=== PATIENT | female | born 1960 | race Caucasian/White ===

== ENCOUNTER 2017-03-20 19:49 | Emergency (ER) | payer MEDICARE ==
--- OUTSIDE RECORDS SUMMARY | 2017-03-20 20:25 | XMS REPORT | Continuity of Care Document ---
:1960 Author Organization [facility] [place] [address] Care Team Providers Name Role Phone Aneesh Damon Primary Care Provider [phone] Source Comments This disclosure is being made pursuant to the [employer] program and maynot contain all information available regarding this patient.[facility] Active Allergies and Adverse Reactions Allergen Noted Date Severity Reactions Comments Demerol 01/14/2013 High Swelling SWELLING IN THROAT AND FACE Environmental 01/14/2013 Other (See Comments) SEASONAL Lisinopril 01/19/2016 Other (See Comments) Current Medications Be aware that medications may not be up to date as of this document. Alwaysverify current medications with the patient. Prescription Sig. Disp. Refills Start Date End Date Status furosemide (LASIX) 20 MG Take by mouth Active tablet 2 (two) times daily. 140Mg in AM 100mg in PM potassium chloride Take 40 mEq by Active (K-TAB, KLOR-CON) 10 MEQ mouth 2 (two) tablet times daily. Nasal Wash SOLN by Nasal route Active daily. aspirin 81 MG EC tablet Take 81 mg by Active mouth daily. HYDROcodone-acetaminophen Take 1-2 30 tablet 0 02/07/2013 Active (NORCO) 5-325 MG per tablets by tablet mouth every 4 (four) hours as needed. ibuprofen (ADVIL,MOTRIN) Take 10 mLs by 237 mL 0 02/07/2013 Active 100 MG/5ML suspension mouth every 6 (six) hours as needed. magnesium hydroxide (MILK Take 30 mLs by 360 mL 0 02/07/2013 Active OF MAGNESIA) 400 MG/5ML mouth 2 (two) suspension times daily as needed for Constipation. metoprolol succinate Take 3 tablets 180 tablet 2 02/07/2013 Active (TOPROL-XL) 25 MG 24 hr by mouth 2 tablet (two) times daily. spironolactone Take 25 mg by 05/27/2013 Active (ALDACTONE) 25 MG tablet mouth daily. citalopram (CELEXA) 20 MG Take 20 mg by Active tablet mouth daily. hydrochlorothiazide Take 25 mg by Active (HYDRODIURIL) 25 MG mouth daily. tablet losartan (COZAAR) 50 MG Take 50 mg by Active tablet mouth 2 (two) times daily. warfarin (COUMADIN) 5 MG Take 10mg 150 tablet 1 12/24/2015 Active tablet (2tabs) Sun & Wed, 7.5mg (1 1/2 tabs) all others or as directed by [facility] levothyroxine (SYNTHROID, Take 50 mcg by Active LEVOTHROID) 50 MCG tablet mouth every morning. atorvastatin (LIPITOR) 40 Take 40 mg by Active MG tablet mouth daily. Active Problems Problem Noted Date Hyperlipidemia 01/19/2016 Morbid obesity (HCC) 01/19/2016 Automatic implantable cardiac defibrillator in situ 01/19/2016 Depression 01/19/2016 PAF (paroxysmal atrial fibrillation) ([facility]) 01/19/2016 Right knee pain 01/19/2016 Chronic systolic heart failure ([facility]) 01/19/2016 Ventricular tachycardia ([facility]) 01/19/2016 H/O mitral valve replacement 01/19/2016 LBBB (left bundle branch block) 01/19/2016 Primary cardiomyopathy ([facility]) 01/19/2016 COPD with asthma ([facility]) 01/19/2016 Resolved Problems Problem Noted Date Resolved Date Mitral valve disorders 04/10/2015 05/24/2016 Heart valve replaced by other means 04/10/2015 05/24/2016 Immunizations Name Dates Previously Given Next Due Influenza Split 07/08/2015 Pneumococcal Polysaccharide-23 06/11/2013 Td, preservative free 07/23/2008 Tdap 06/29/2015 Social History Tobacco Use Types Packs/Day Years Used Date Former Smoker 2 42 Quit: 11/21/2012 Comments:QUIT 11/21/12 Alcohol Use Drinks/Week oz/Week Comments No Last Filed Vital Signs Vital Sign Reading Time Taken Blood Pressure 110/70 06/04/2015 11:15 AM CDT Pulse 87 06/04/2015 11:15 AM CDT Temperature 36.8 C (98.2 F) 07/21/2013 12:16 PM CDT Respiratory Rate 20 06/04/2015 11:15 AM CDT Height 1.689 m (5' 6.5") 06/04/2015 11:15 AM CDT Weight 128.822 kg (284 lb) 06/04/2015 11:15 AM CDT Body Mass Index 45.16 06/04/2015 11:15 AM CDT Oxygen Saturation 92% 06/04/2015 11:15 AM CDT Plan of Care Health Maintenance Due Date Last Done Comments Hepatitis C Screening 1977 Pap Smear 1980 Well Adult Visit 2009 Mammogram 03/25/2015 03/25/2013 Influenza Immunization (#1) 2016 07/08/2015 Colonoscopy 06/06/2019 06/06/2009 Tetanus/Pertussis (2 - Td) 06/29/2025 06/29/2015, 07/23/2008 Pneumococcal Medium Risk 19-64 yo Completed 06/11/2013 Results from Last 3 Months Not on file
[2017-03-20 20:32] LABS: Hematocrit 39.9 % (37.0-47.0); Hemoglobin 13.4 gm/dL (12.5-16.0); Mean Cell Volume 92.1 fl (78-100); Mean Corpuscular Hemoglobin 30.9 pg (27-31); Mean Corpuscular Hgb Conc 33.6 g/dl (32-36); Mean Platelet Volume 10.7 fl (6.0-9.5); Neutrophil # 3.7 K/mm3 (1.3-6.0); Platelet Count 233 K/mm3 (150-450); Red Blood Count 4.33 M/mm3 (4.2-5.4); Red Cell Distribution Width 14.1 % (11.5-14.0); White Blood Count 6.5 K/mm3 (4.0-10.5)
--- NOTE | 2017-03-20 20:46 | ERNOTE ---
Psychological HPI - General Chief Complaint: Anxiety Source: Reports: patient, family Exam Limitations: Reports: no limitations - Immun/Allergies/Home Medications Allergies/Adverse Reactions: Allergies meperidine HCl [From Demerol] Allergy (Verified 03/20/17 20:02) fluticasone Adverse Reaction (Verified 03/20/17 20:02) lisinopril Adverse Reaction (Verified 03/20/17 20:02) Home Medications: HOME MEDICATIONS Aspirin [Aspirin Chewable] 81 mg PO DAILY 02/04/16 [Last Taken 02/04/16] Atorvastatin Calcium 40 mg PO DAILY 02/04/16 [Last Taken 02/03/16] Cholecalciferol (Vitamin D3) [Vitamin D3] 5,000 unit PO DAILY 02/04/16 [Last Taken 02/04/16] Citalopram Hydrobromide [Citalopram HBr] 20 mg PO DAILY 02/04/16 [Last Taken ] Cyclobenzaprine HCl [Flexeril] 10 mg PO TID PRN 02/04/16 [Last Taken Unknown] Furosemide [Lasix] 40 mg PO BID 02/04/16 [Last Taken 02/04/16] Furosemide [Lasix] 80 mg PO BID 02/04/16 [Last Taken 02/04/16] Hydrochlorothiazide [Hydrodiuril] 25 mg PO DAILY 02/04/16 [Last Taken 02/04/16] Levothyroxine Sodium [Synthroid] 50 mcg PO DAILY 02/04/16 [Last Taken 02/04/16] Loratadine [Claritin] 10 mg PO DAILY 02/04/16 [Last Taken 02/04/16] Losartan Potassium [Cozaar] 200 mg PO DAILY 02/04/16 [Last Taken 02/04/16] Metoprolol Succinate [Toprol Xl] 50 mg PO DAILY 02/04/16 [Last Taken 02/04/16] Metoprolol Succinate [Toprol Xl] 100 mg PO HS 02/04/16 [Last Taken 02/03/16] Spironolactone [Aldactone] 25 mg PO DAILY 02/04/16 [Last Taken 02/04/16] Warfarin Sodium [Coumadin] 7.5 mg PO MOFR 02/04/16 [Last Taken 02/03/16] Warfarin Sodium [Coumadin] 10 mg PO DAILY 02/04/16 [Last Taken 02/02/16] Acetaminophen [Tylenol] 1,000 mg PO Q6H PRN 06/29/16 [Last Taken Unknown] Potassium Chloride [K-Dur] 20 meq PO BID 06/29/16 [Last Taken Unknown] diphenhydrAMINE HCL [Benadryl] 50 mg PO Q4H PRN 06/29/16 [Last Taken Unknown] oxyCODONE HCL/ACETAMINOPHEN [Percocet 5 MG/325 MG] 1 tab PO Q4H PRN 06/29/16 [ Last Taken Unknown] Albuterol Sulfate [Albuterol Sulfate 2.5 MG/0.5ML] 1 vial IH Q4H PRN #60 vial.neb 07/01/16 [Last Taken Unknown] Azithromycin [Zithromax] 250 mg PO DAILY #3 tablet 07/01/16 [Last Taken Unknown] Cefdinir [Omnicef] 300 mg PO Q12H #20 cap 07/01/16 [Last Taken Unknown] - History of Present Illness Narrative: Pt under stress because her mother is in the ICU in this facility. She began having mild shortness of breath and felt her pacemaker give a small shock. Previous shocks have been severe and caused her syncopal episodes. Today she has had two, the family states that the first one did effect her some but the second one happened during my interview with her and she simply stopped and said "that hurt". There were no obvious changes on the cardiac catheterization technician to correlate with that reported shock. Time Seen by Provider: 03/20/17 20:20 Onset/duration: Reports: sudden onset Situational Problems: Reports: parents - Mother possibly going on hospice Associated Symptoms: Reports: depressed Review of Systems - Review of Systems Constitutional: Present: no symptoms reported EYE: Present: no symptoms reported ENT: Present: no symptoms reported Respiratory: Present: shortness of breath. Absent: cough Cardiology: Present: edema - "because I haven't been taking care of myself lately". Absent: chest pain, palpitations Gastrointestinal/Abdominal: Absent: nausea, vomiting Genitourinary: Present: no symptoms reported Musculoskeletal: Present: no symptoms reported Skin: Present: no symptoms reported Neurological: Present: weakness. Absent: dizziness/light-headedness Endocrine: Absent: excessive sweating, flushing Hematologic/Lymphatic: Present: no symptoms reported Psych: Present: emotional problems - Patient's Past Medical History Patient History - Medical: Anxiety, Chronic Pain, Depression, Hypothyroidism Patient History - Cardiac/Respiratory: Asthma, Cardiac Arrest, COPD, Hyperlipidemia Patient History - Cancer: No Hx of Cancer Patient History - Surgical Procedures: Cholecystectomy, Hysterectomy, Pacemaker , T & A, Other - mitral valve repair (failed), Mitral valve replacement Patient History - Other: None LMP (females 10-50): other - Family History Father Family History - Medical: Brother Family History - Medical: Hypothyroidism Sister Family History - Medical: Hypothyroidism Mother Family History - Medical: Family History - Cardiac/Respiratory: Arrhythmias, COPD, Hypertension - Social History Living Situations: home Abuse History: No History of abuse Psych History: Hx of Anxiety, Hx of Depression Alcohol Use: occasionally Drug Use: none - Immunizations Immunizations Up to Date: No Hx Pneumococcal Vaccination: Yes History of Influenza Vaccine: No Physical Exam - Physical Exam General Appearance: Present: wd/wn, alert, no apparent distress, mild distress Eye Exam: Normal inspection: bilateral, PERRL: bilateral, EOMI: bilateral Ears, Nose, Throat: Present: normal ENT inspection Neck: Present: normal inspection, nontender Respiratory: Present: no respiratory distress, normal breath sounds, lungs clear Cardiovascular/Chest: Present: regular rate, rhythm, no murmur, normal peripheral pulses Gastrointestinal/Abdominal: Present: normal bowel sounds, nontender, nondistended Extremity Exam: Present: normal inspection, non-tender, pedal edema - 1+ Neurological Exam: Present: alert, oriented, normal mood/affect, no motor/ sensory deficits Skin Exam: Present: normal color, warm/dry ED Progress - Results and Orders Patient's Lab Results:: I have reviewed the patient's lab results. Results and Orders: Laboratory Tests 03/20/17 03/20/17 20:21 20:30 WBC 6.5 Hgb 13.4 Hct 39.9 Plt Count 233 Sodium 141 Potassium 3.8 Chloride 103 Carbon Dioxide 32.7 H Anion Gap 9.1 BUN 19 Creatinine 0.94 BUN/Creatinine Ratio 20.2 Random Glucose 120 H Calcium 9.5 Troponin I Less than 0.017 - Vital Signs Patient's Vital Signs:: I have reviewed the patient's vital signs. Vital Signs: Vital Signs 03/20/17 03/20/17 19:56 20:02 Temperature 37.2 C Pulse Rate 93 90 Respiratory 20 Rate Blood Pressure 126/94 O2 Sat by Pulse 93 Oximetry - EKG EKG: other - Paced rhythm with PVC's EKG read: Interp. by me - X-Ray X-Ray #1 X-Ray: chest Interpretation: Reviewed by me X-ray Comments: IMPRESSION: 1. MILDLY ENLARGED CARDIAC SILHOUETTE, WHICH IS UNCHANGED. THERE IS AN ASSOCIATED VALVULAR PROSTHESIS AND CARDIAC PACER. 2. NO ACUTE CARDIOPULMONARY PROCESS. Electronically signed by Aidan Campbell M.D.. - Progress/Reassessment Chief Complaint: Anxiety Progress:: Improved Progress Note-Subjective: 03/21/17 02:48 Pt had another "shock" while I was talking to her about discharge but she insists on being discharged. This again was not severe or like the other shocks that she had experienced. This was also in a different place than the others that she felt tonight. I encouraged her to return to the ED if she has any worsening, pt agreed that she would return to the ED if she has symptoms. Departure Clinical Impression: Anxiety, Pacemaker - Departure Disposition: Home Follow Up Needed Condition: Good Instructions: Panic Attacks, [id number] Additional Instructions: Get sleep, fluids and rest. Return to ER if you continue to have symptoms or certainly if it gets worse. Call your assembly line brazer tomorrow to have a pacemaker check in the next few days Referrals: Keyon Saini MD [Primary Care Provider] -
[2017-03-20 20:49] LABS: Anion Gap 9.1 mmol/L (6.8-13.8); BUN/Creatinine Ratio 20.2 (9.0-21.6); Blood Urea Nitrogen 19 mg/dL (3-23); Calcium * 9.5 mg/dL (7.9-10.9); Carbon Dioxide 32.7 mmol/L (24-32.6); Chloride 103 mmol/L (97-106); Estimated Creat Clear 64.2; Glucose * 120 mg/dL (70-110); Potassium 3.8 mmol/L (3.4-4.6); Sodium 141 mmol/L (132-142); Troponin I Less than 0.017 ng/ml (0.00-0.10)
[2017-03-20 21:42] VITALS: BP 118/72
== END 2017-03-20 21:50 | disposition home or self-care (01) ==
LOC: ER 19:49
DX: F41.9 Anxiety disorder, unspecified (principal); Z95.5 Presence of coronary angioplasty implant and graft